=== PATIENT | female | born 1955 | race Two or more races ===

== ENCOUNTER → 2016-12-13 | Outpatient (CLI) | payer BC ==
--- NOTE | ~2016-12-13 | US6 ---
[facility] A Service of [facility] & [facility] RADIOLOGY TEXT RESULTS PATIENT: ELIN SCHMIDT LOCATION: [facility] : 53 UNIT #: [id number] AGE: [address]: Melvin Ledezma MD SEX: F ORDER DR: [id number] [facility] [address] [place], [place] [address] [id number] O MR#: [id number] Acc #: [id number] NAME: ELIN SCHMIDT : 1955 SEX: F STUDY DATE/TIME: 12/13/2016 7:53 UNIT: [facility] ROOM: STUDY DESCRIPTION: US Abdominal Limited Attending Physician: Melvin Ledezma M.D. Referring Physician: Melvin Ledezma M.D. Ordering Physician: Melvin Ledezma M.D. Primary Care Physician: Melvin Ledezma M.D. MEDICAL IMAGING REPORT This report is preliminary unless electronic signature is present EXAM Right upper quadrant ultrasound 12/13/2016. HISTORY Abnormally elevated liver enzymes diagnosed 1 week ago. FINDINGS The liver demonstrates an increase in echotexture with attenuation of the ultrasound beam characteristic of fatty infiltration. No cystic or solid mass lesions were seen in the liver. The intra- and extrahepatic bile ducts are not dilated. The gallbladder is surgically absent, as per patient history. The common duct measures 4 mm. The pancreas and right kidney are normal. IMPRESSION 1. Fatty infiltration of the liver. 2. Surgical absence of the gallbladder. Dictated by... Mckay Barillas M.D. THIS IS AN ELECTRONICALLY VERIFIED REPORT Mckay Barillas M.D. at 12/17/2016 9:19 AM RAFAELA/ioana TD: 12/13/2016 17:59 JOB #: [id number] MEDICAL IMAGING REPORT Page 1 of 1 COPY
== END | disposition home or self-care (01) ==
LOC: CWCC 07:32
DX: R74.8 Abnormal levels of other serum enzymes (principal); K76.0 Fatty (change of) liver, not elsewhere classified; Z90.49 Acquired absence of other specified parts of digestive tract
CPT/HCPCS: 76705